=== PATIENT | female | born 1970 | race Caucasian/White ===

== ENCOUNTER 2020-04-21 12:30 | Outpatient (CLI) | payer OTHER, SELFPAY ==
--- NOTE | 2020-04-21 12:54 | MM_ITS ---
WS: [id number] SCREENING DIGITAL MAMMOGRAM WITH CAD HISTORY: SCREEN COMPARISON: None available. Bilateral CC and MLO views submitted. Computer aided detection analyzed. Breast composition: The breasts are heterogeneously dense, which may obscure small masses. Focal irre gular asymmetry measuring 8 mm in the central RIGHT breast on the CC projection only. Otherwise no ch dre. RIGHT breast: Spot compression views (CC ). True ML. Ultrasound to follow if abnormality persists. MM/[place] [id number] IMPRESSION: BI-RADS: 0-Incomplete: Need additional imaging evaluation FOLLOW UP: Need Additional Imaging
== END 2020-04-21 12:31 | disposition home or self-care (01) ==
LOC: RADSHAW 12:35
PROVIDERS: PCP Nurse Practitioner Family; Visit Provider Nurse Practitioner Family
DX: Z12.31 Encounter for screening mammogram for malignant neoplasm of breast (principal); N64.89 Other specified disorders of breast
CPT/HCPCS: 77067

== ENCOUNTER 2020-05-13 10:05 | Outpatient (CLI) | payer OTHER, SELFPAY ==
--- NOTE | 2020-05-13 10:15 | US_ITS ---
WS: [id number] RIGHT DIGITAL MAMMOGRAPHY WITH CAD CLINICAL INFORMATION: RT BREAST ASYMMETRY HISTORY: COMPARISON: April 21, 2020 TECHNIQUE: 2 views of the right breast were obtained. FINDINGS: The right breast is composed of heterogeneous fibroglandular density tissue, which can limit the dete ction of small underlying mass lesions. Focal asymmetry is again seen measuring 8 mm in the central right breast best seen on the CC view. Ul trasound is pending. ULTRASOUND BREAST RIGHT TECHNIQUE: Ultrasound right breast focused area of concern. CLINICAL INFORMATION: RT BREAST ASYMMETRY COMPARISON: None. FINDINGS: Ultrasound right breast at the 12:00 position 3 cm from the nipple is a heterogeneous mixed echogenic ity nodule measuring 6.3 x 3.2 x 3.9 mm. This lesion is indeterminant and Recommend further evaluatio n with ultrasound-guided biopsy US/US breast RT limited* [id number] IMPRESSION: BI-RADS: 4B-Suspicious: Intermediate FOLLOW UP: US Guided Biopsy Recommended
== END 2020-05-13 10:06 | disposition home or self-care (01) ==
LOC: RADSHAW 10:09
PROVIDERS: PCP Nurse Practitioner Family; Visit Provider Radiology Diagnostic Radiology
DX: N63.15 Unspecified lump in the right breast, overlapping quadrants (principal)
CPT/HCPCS: 76642; 77065

== ENCOUNTER 2020-05-27 11:45 | Outpatient (CLI) | payer MEDICAID, SELFPAY ==
--- NOTE | 2020-05-27 11:51 | US_ITS ---
WS: [id number] ULTRASOUND-GUIDED RIGHT BREAST BIOPSY CLINICAL INFORMATION: R BREAST ASYMMETRY COMPARISON: None. FINDINGS: The procedure including risks, benefits, and complications were discussed with the patient who agreed to proceed. Using sterile technique patient was prepped and draped in the usual sterile fashion. Aft er 1% lidocaine utilizing real-time ultrasound guidance 4 14-gauge cores were obtained of the right b reast lesion at the 3 o'clock position. Subsequently a titanium clip was placed in the biopsy cavity. No immediate complications. Pathology demonstrates Breast, right, 12:00 biopsy: -Benign breast tissue with usual ductal hyperplasia and apocrine metaplasia. -No malignancy identified. US/[place] [id number] IMPRESSION: 1. Uncomplicated ultrasound-guided right breast biopsy. 2. The pathology demonstrates benign breast tissue. No malignancy identified. BI-RADS: 2-Benign FOLLOW UP: 1 Year Follow-up
[2020-05-27 12:30] LABS: INR 0.91 (0.8-1.2)
== END 2020-05-27 11:46 | disposition home or self-care (01) ==
PROVIDERS: PCP Nurse Practitioner Family
DX: N64.89 Other specified disorders of breast (principal); N62 Hypertrophy of breast; N60.81 Other benign mammary dysplasias of right breast
CPT/HCPCS: 19083; 36415; 85610; 88305

== ENCOUNTER 2020-12-12 07:41 | Emergency (ER) | payer SELFPAY ==
[2020-12-12 08:00] VITALS: BP 101/68; PULSE 64; RESP 18; TEMP 36.6; O2SAT 100; BMI 22.6
--- NOTE | 2020-12-12 08:10 | XRR_ITS ---
PROCEDURE INFORMATION: Exam: XR Thoracic Spine, 3 Views Exam date and time: 12/12/2020 8:21 AM Age: 50 years old Clinical indication: Injury or trauma; Fall; Blunt trauma (contusions or hematomas) TECHNIQUE: Imaging protocol: XR of the thoracic spine, 3 views. COMPARISON: No relevant prior studies available. FINDINGS: Bones/joints: Mild degenerative changes are present with a few tiny osteophytes.. No acute fracture. Normal alignment. Soft tissues: Unremarkable. XR/XR thoracic spine 3V* [id number] IMPRESSION: No acute findings.
--- NOTE | 2020-12-12 08:10 | XRR_ITS ---
PROCEDURE INFORMATION: Exam: XR Cervical Spine, 2 or 3 Views Exam date and time: 12/12/2020 8:21 AM Age: 50 years old Clinical indication: Injury or trauma; Fall; Blunt trauma; Additional info: Fall, neck pain TECHNIQUE: Imaging protocol: XR of the cervical spine, 2 or 3 views. COMPARISON: No relevant prior studies available. FINDINGS: Bones/joints: No fracture or other acute bone or joint abnormalities are seen in the cervical spine. Chronic degenerative disease is present especially from C5 through C7 and T1-T2 with disc space narrowing sclerosis and osteophytes. There is no significant malalignment. Soft tissues: Unremarkable. XR/XR cervical spine 3V* [id number] IMPRESSION: Chronic degenerative disease. No acute abnormality.
--- NOTE | 2020-12-12 08:10 | XRR_ITS ---
PROCEDURE INFORMATION: Exam: XR Lumbosacral Spine, 2 or 3 Views Exam date and time: 12/12/2020 8:21 AM Age: 50 years old Clinical indication: Injury or trauma; Fall; Blunt trauma (contusions or hematomas); Additional info: Fall l5, s1 pain area TECHNIQUE: Imaging protocol: XR of the lumbosacral spine, 2 or 3 views. COMPARISON: CT abdomen pelvis w con* [id number] 04/26/2019 7:56 PM FINDINGS: Bones/joints: Mild degenerative disease is present with mild narrowing of the L5-S1 disc space and sclerosis in the lower lumbar facet joints.. No acute fracture. Normal alignment. Soft tissues: Unremarkable. XR/XR lumbar spine 2-3V* [id number] IMPRESSION: No acute findings.
--- NOTE | 2020-12-12 08:11 | ED_ITS ---
HPI - Trauma General: Chief Complaint: Trauma Stated Complaint: FALL, R HIP PAIN/TAILBONE PAIN Time Seen by Provider: 12/12/20 08:07 History of Present Illness: HPI narrative: Patient fell at 0 530 this morning going out to put wood in her furnace. She landed on her left side. And said she felt immediate pain on her right side lower lumbar area and in her neck. States she vomited just right after she fell because it hurts so bad she is able to ambulate now without much difficulty complaining pain going down right sciatic nerve area. Has had a history of sciatica. denies loss of conscious or hitting her head. MD complaint: fall, injury and pain Onset (ago): hour(s) Loss of Consciousness: no Location: back Severity: moderate Severity scale (1-10): 5 Context: fall Associated symptoms: Reports back pain and vomiting (X1); Denies chest pain, chills, fever(s) or headache(s) Review of Systems Const: Denies: fever(s), chills or body aches Eyes: Denies: change in vision or blurry vision ENMT: Denies: throat pain or nasal congestion Card: Denies: chest pain or dyspnea on exertion Resp: Denies: dyspnea, productive cough or non-productive cough GI: Reports: vomiting (X1) Musc: Reports: neck pain (Neck muscles are sore especially be between the upper scapula she says), back pain and extremity pain (Right static area down hip into the thigh); Denies: deformity Skin/Breast: Denies: rash Neuro: Denies: headache(s) Psych: Denies: anxiety or depression Cruz/Lymph: Denies: easy bruising Physical Exam Const: COMMON NORMALS: no acute distress, average body habitus and patient oriented x3 HENMT: COMMON NORMALS: normocephalic HEAD & SCALP: normal to inspection and normocephalic FACE & SINUS: normal facial exam Eye: COMMON NORMALS: conjunctivae normal GENERAL EYE: appearance normal, both eyes and all related structures CONJUNCTIVA: Yes conjunctivae normal Neck/C-Spine: COMMON NORMALS: full ROM and no JVD CERVICAL SPINE: No Cervical spine tenderness and Yes Paracervical muscle tenderness Chest: COMMONS NORMALS: normal inspection of the chest Resp: COMMON NORMALS: normal respiratory effort and clear to auscultation bilaterally AUSCULTATION: clear to auscultation bilaterally Cardio: COMMON NORMALS: no JVD, regular rate and regular rhythm RATE: regular rate RHYTHM: regular rhythm GI: COMMON NORMALS: Normal to inspection, nondistended, normoactive bowel sounds present : BLADDER/KIDNEY EXAM: No CVA tenderness Back/Pelvis: GENERAL BACK: No CVA tenderness THORACIC SPINE/UPPER BACK: Yes thoracic spinal tenderness T-spine tenderness location: T1 LUMBAR SPINE/LOWER BACK: Yes lumbar spinal tenderness PELVIS: Yes buttock abnormal Buttock abnormal laterality: right Right buttock abnormal details: tenderness SACRUM: tenderness Extremity: COMMON NORMALS: normal to inspection and full ROM Neuro: COMMON NORMALS: patient oriented x3 Coding Level of Care 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
[2020-12-12] MEDS: predniSONE 20 mg Tablet 60 MG PO (09:05)
[2020-12-12] MEDS: TRAMadol 50 mg Tablet PO (09:05)
[2020-12-12 09:10] VITALS: BP 102/59; PULSE 62; RESP 20; O2SAT 100
== END 2020-12-12 09:11 | disposition home or self-care (01) ==
PROVIDERS: Emergency Provider Nurse Practitioner Family; PCP Nurse Practitioner Family
DX: M54.5 Low back pain (principal); M54.2 Cervicalgia
CPT/HCPCS: 72040; 72072; 72100; 99283; J7512

== ENCOUNTER 2021-05-24 11:40 | Outpatient (CLI) | payer OTHER, SELFPAY ==
--- NOTE | 2021-05-24 11:46 | MM_ITS ---
WS: [id number] BILATERAL DIGITAL SCREENING MAMMOGRAPHY WITH CAD CLINICAL INFORMATION: SCREENING HISTORY: Screening mammogram. No current complaints. COMPARISON: April 21, 2020 TECHNIQUE: Bilateral CC and MLO views. FINDINGS: The breasts are composed of heterogeneous fibroglandular density tissue, which can limit the detectio n of small underlying mass lesions. No suspicious mass, asymmetry, calcifications, or architectural d istortion. No evidence of malignancy. Biopsy marker right breast with adjacent parenchymal scarring. MM/[place] [id number] IMPRESSION: BI-RADS: 2-Benign FOLLOW UP: 1 Year Follow-up Recommend return to annual screening mammography.
== END 2021-05-24 11:41 | disposition home or self-care (01) ==
LOC: RADSHAW 11:44
PROVIDERS: PCP Nurse Practitioner Family; Visit Provider Family Medicine
DX: Z12.31 Encounter for screening mammogram for malignant neoplasm of breast (principal)
CPT/HCPCS: 77067

== ENCOUNTER 2022-04-02 19:35 | Emergency (ER) | payer MEDICAID, SELFPAY ==
[2022-04-02 19:49] VITALS: BP 123/82; PULSE 78; RESP 16; TEMP 37; O2SAT 99; BMI 22.2
[2022-04-02 20:39] VITALS: BP 122/75; PULSE 75; RESP 16; O2SAT 100
--- NOTE | 2022-04-02 20:43 | CTR_ITS ---
PROCEDURE INFORMATION: Exam: CT Abdomen And Pelvis With Contrast Exam date and time: 04/02/2022 9:05 PM Age: 51 years old Clinical indication: Other: Gi bleeding; Prior surgery; Surgery date: 6+ months; Surgery type: Gb, hyst; Additional info: Llq pain gi bleeding TECHNIQUE: Imaging protocol: Computed tomography of the abdomen and pelvis with contrast. Radiation optimization: All CT scans at this facility use at least one of these dose optimization techniques: automated exposure control; mA and/or kV adjustment per patient size (includes targeted exams where dose is matched to clinical indication); or iterative reconstruction. Contrast material: OMNI 300; Contrast volume: 95 ml; Contrast route: INTRAVENOUS (IV); COMPARISON: CT abdomen pelvis w con* [id number] 04/26/2019 7:56 PM RADIATION DOSE METRICS: Total DLP (mGy-cm): 1042.87 FINDINGS: Liver: Normal. No mass. Gallbladder and bile ducts: Cholecystectomy. No calcified stones. No ductal dilation. Pancreas: Normal. No ductal dilation. Spleen: Normal. No splenomegaly. Adrenal glands: Normal. No mass. Kidneys and ureters: Normal. No hydronephrosis. Stomach and bowel: Unremarkable. No obstruction. No mucosal thickening. Appendix: No evidence of appendicitis. Intraperitoneal space: Unremarkable. No free air. No significant fluid collection. Vasculature: Unremarkable. No abdominal aortic aneurysm. Lymph nodes: Unremarkable. No enlarged lymph nodes. Urinary bladder: Unremarkable as visualized. Reproductive: Hysterectomy. Bones/joints: Unremarkable. No acute fracture. Soft tissues: Unremarkable. CT/CT abdomen pelvis w con* [id number] IMPRESSION: No acute findings.
[2022-04-02 20:58] LABS: Add Urine Microscopic? NO; Charge for UA Resulting for Rev
[2022-04-02 21:03] LABS: Basophils # 0.1 10^3/uL (0.0-0.1); Basophils % 0.8 %; Eosinophils # 0.1 10^3/uL (0.0-0.8); Eosinophils % 1.7 %; Hematocrit 37.9 % (37.0-47.0); Hemoglobin 12.9 g/dL (11.5-15.3); Lymphocytes # 2.5 10^3/uL (0.8-4.8); Lymphocytes % 39.7 %; Mean Corpuscular Volume 88.1 fl (81-99); Mean Platelet Volume 9.1 fL (7.4-10.4); Monocytes # 0.5 10^3/uL (0.2-0.9); Monocytes % 7.3 %; Neutrophils # 3.21 10^3/uL (1.8-7.7); Neutrophils % 50.2 %; Nucleated Red Blood Cells % 0 %; Platelet Count 366 10^3/cmm (130-400); White Blood Count 6.4 10^3/uL (4.0-10.0)
[2022-04-02] MEDS: sodium chloride 0.9% 1,000 ML 999 ML IV (21:03)
[2022-04-02] MEDS: iohexol 300 mg/mL 100 mL Btl IV (21:05)
[2022-04-02 21:07] LABS: Bilirubin Urine Neg (Negative); Blood Urine Neg (Negative); Glucose Urine UA Norm (Normal); Ketones Urine Negative (Negative); Leukocyte Esterase Urine Negative (Negative); Nitrate Urine Negative (Negative); Protein Urine Neg (Negative); Specific Gravity, Urine 1.015 (1.005-1.030); Urine Appearance Clear (CLEAR); Urine Color Yellow (Yellow); Urobilinogen Urine Norm (Negative); pH Urine 6 (5-7)
[2022-04-02 21:21] LABS: INR 0.94 (0.8-1.2)
[2022-04-02 21:23] LABS: Alanine Aminotransferase 22 U/L (0-33); Albumin Level 4.3 g/dL (3.5-5.2); Alkaline Phosphatase 61 IU/L (35-105); Anion Gap 11.8 (5-19); Aspartate Amino Transferase 13 U/L (0-32); Blood Urea Nitrogen 9 mg/dL (6-20); Calcium 9.1 mg/dL (8.5-10.5); Carbon Dioxide 26 mmol/L (22-29); Chloride 108 mmol/L (98-107); Globulin 2.4 g/dL (1.3-4.6); Glomerular Filtration Rate 76.2 mL/min (90-130); Glucose 100 mg/dL (65-115); Lipase 23 U/L (13-60); Osmolality Calculated 293 mOsm/kg (285-295); Potassium 3.8 mmol/L (3.5-5.1); Sodium 142 mmol/L (136-145); Total Bilirubin 0.4 mg/dL (0.15-1.2); Total Protein 6.7 g/dL (6.6-8.7)
[2022-04-02] MEDS: ciprofloxacin 500 mg Tablet PO (22:19)
[2022-04-02] MEDS: metroNIDAZOLE 500 MG Tablet PO (22:19)
[2022-04-02 22:53] VITALS: BP 125/86; PULSE 78; RESP 16; O2SAT 96
--- NOTE | 2022-04-03 18:52 | W.ED.GIBLEED ---
HPI - GI Bleed General: Chief complaint: GI Bleed Stated complaint: Bloody Stool Time Seen by Provider: 04/02/22 20:19 Source: patient History of Present Illness: 51-year-old female presents bloody, mucousy diarrhea for the past several hours. She has not vomited. She has mild cramping abdominal pain with it. She has not had the symptoms before. She does have a history of IBS. MD complaint: blood streaked stool Onset (ago): hour(s) Pain Consistency: constant Severity: moderate Relieving factors: none Exacerbating factors: bowel movement Context: other Associated symptoms: Reports abdominal pain and nausea; Denies chills, fever(s) or vomiting Review of Systems Const: Denies: fever(s) or chills ENMT: Reports: throat pain Card: Denies: chest pain Resp: Denies: dyspnea GI: Reports: abdominal pain, nausea and diarrhea; Denies: vomiting Physical Exam Const: COMMON NORMALS: no acute distress GENERAL APPEARANCE: cooperative; not ill appearing HENMT: COMMON NORMALS: normocephalic, atraumatic and Normal external nose present HEAD & SCALP: normocephalic and atraumatic FACE & SINUS: normal facial exam and face symmetric NOSE: Normal external nose present Eye: COMMON NORMALS: Equal, round and reactive pupils present and EOMs intact bilaterally PUPIL: Yes Equal, round and reactive pupils present Neck/C-Spine: GENERAL: Yes trachea midline Chest: CHEST: Yes Symmetrical chest wall rise Resp: COMMON NORMALS: normal respiratory effort, No use of accessory muscles and clear to auscultation bilaterally AUSCULTATION: clear to auscultation bilaterally Cardio: COMMON NORMALS: regular rate and regular rhythm RATE: regular rate RHYTHM: regular rhythm GI: COMMON NORMALS: Soft to palpation INSPECTION: Yes abdominal distension (mild) PALPATION: Yes Soft to palpation and Yes Tenderness to palpation present (GI) Extremity: COMMON NORMALS: no pedal edema Neuro: ROSAURA COMA SCALE: document GCS findings Rosaura coma scale eye opening: Spontaneous [place] coma scale verbal response: Orientated Rosaura coma scale motor response: Obey commands Rosaura coma scale total score: 15 Course Vital Signs: Vital signs: Vital Signs Temperature 98.6 F 04/02/22 19:49 Pulse Rate 78 04/02/22 22:53 Respiratory Rate 16 04/02/22 22:53 Blood Pressure 125/86 04/02/22 22:53 Pulse Oximetry 96 04/02/22 22:53 MDM - GI Bleed Medical Decision Making Patient notes improvement after being here. Hemoglobin is 12.9. Normal white count. CMP is essentially normal. Urinalysis is negative. C-reactive protein is only 3. CT is negative. Likely a mild hemorrhagic colitis, will treat accordingly. Lab Data : 04/02/22 20:50 04/02/22 20:50 Radiology Impressions Abdomen/Pelvis CT 04/02/22 20:43 IMPRESSION: No acute findings. Laboratory Results WBC 6.4 10^3/uL (4.0-10.0) 04/02/22 20:50 RBC 4.30 10^6/uL (4.1-5.3) 04/02/22 20:50 Hgb 12.9 g/dL (11.5-15.3) 04/02/22 20:50 Hct 37.9 % (37.0-47.0) 04/02/22 20:50 MCV 88.1 fl (81-99) 04/02/22 20:50 MCH 30.0 pg (28.0-34.0) 04/02/22 20:50 MCHC 34.0 g/dL (30.0-36.0) 04/02/22 20:50 RDW 12.0 % (12.1-15.1) L 04/02/22 20:50 Plt Count 366 10^3/cmm (130-400) 04/02/22 20:50 MPV 9.1 fL (7.4-10.4) 04/02/22 20:50 Neut % (Auto) 50.2 % 04/02/22 20:50 Lymph % (Auto) 39.7 % 04/02/22 20:50 [place] % (Auto) 7.3 % 04/02/22 20:50 Eos % (Auto) 1.7 % 04/02/22 20:50 Baso % (Auto) 0.8 % 04/02/22 20:50 Neut # (Auto) 3.21 10^3/uL (1.8-7.7) 04/02/22 20:50 Lymph # (Auto) 2.5 10^3/uL (0.8-4.8) 04/02/22 20:50 [place] # (Auto) 0.5 10^3/uL (0.2-0.9) 04/02/22 20:50 Eos # (Auto) 0.1 10^3/uL (0.0-0.8) 04/02/22 20:50 Baso # (Auto) 0.1 10^3/uL (0.0-0.1) 04/02/22 20:50 Nucleated RBC % (auto) 0 % 04/02/22 20:50 Nucleated RBCs # 0.0 /100WBC 04/02/22 20:50 PT 12.80 SECONDS (12.1-14.9) 04/02/22 20:58 INR 0.94 (0.8-1.2) 04/02/22 20:58 Sodium 142 mmol/L (136-145) 04/02/22 20:50 Potassium 3.8 mmol/L (3.5-5.1) 04/02/22 20:50 Chloride 108 mmol/L (98-107) H 04/02/22 20:50 Carbon Dioxide 26 mmol/L (22-29) 04/02/22 20:50 Anion Gap 11.8 (5-19) 04/02/22 20:50 BUN 9 mg/dL (6-20) 04/02/22 20:50 Creatinine 0.8 mg/dL (0.5-0.9) 04/02/22 20:50 GFR Calculation 76.2 mL/min (90-130) L 04/02/22 20:50 Glucose 100 mg/dL (65-115) 04/02/22 20:50 Calculated Osmolality 293 mOsm/kg (285-295) 04/02/22 20:50 Calcium 9.1 mg/dL (8.5-10.5) 04/02/22 20:50 Total Bilirubin 0.4 mg/dL (0.15-1.2) 04/02/22 20:50 AST 13 U/L (0-32) 04/02/22 20:50 ALT 22 U/L (0-33) 04/02/22 20:50 Alkaline Phosphatase 61 IU/L (35-105) 04/02/22 20:50 C-Reactive Protein 3.0 mg/L (0.0-4.9) 04/02/22 20:50 Total Protein 6.7 g/dL (6.6-8.7) 04/02/22 20:50 Albumin 4.3 g/dL (3.5-5.2) 04/02/22 20:50 Globulin 2.4 g/dL (1.3-4.6) 04/02/22 20:50 Lipase 23 U/L (13-60) 04/02/22 20:50 Urine Color Yellow (Yellow) 04/02/22 20:50 Urine Appearance Clear (CLEAR) 04/02/22 20:50 Urine pH 6 (5-7) 04/02/22 20:50 Ur Specific [place] 1.015 (1.005-1.030) 04/02/22 20:50 Urine Protein Neg (Negative) 04/02/22 20:50 Urine Glucose (UA) Norm (Normal) 04/02/22 20:50 Urine Ketones Negative (Negative) 04/02/22 20:50 Urine Blood Neg (Negative) 04/02/22 20:50 Urine Nitrate Negative (Negative) 04/02/22 20:50 Urine Bilirubin Neg (Negative) 04/02/22 20:50 Urine Urobilinogen Norm mg/dL (Negative) 04/02/22 20:50 Ur Leukocyte Esterase Negative (Negative) 04/02/22 20:50 Discharge Plan Discharge Patient Disposition: Home Clinical Impression: Acute hemorrhagic colitis Condition: Stable Prescriptions: New prednisone 10 mg tablet See Rx Instructions .ROUTE .COMPLEX Qty: 21 0RF Rx Instructions: 4 PO Qday x3d, 2 PO [id number], 1 PO [id number] metronidazole 500 mg tablet 500 mg PO Q8H 7 Days Qty: 21 0RF Cipro 500 mg tablet 500 mg PO Q12H Qty: 14 0RF No Action tramadol 50 mg tablet 50 mg PO TID PRN (Reason: pain) Qty: 14 0RF prednisone 20 mg tablet 20 mg PO DAILY Qty: 7 0RF Discharge Orders: Discharge ED (Routine); Ordered 04/02/22 Ordered By: Venu Orellana Referrals: Alissa Gustafson FNP [Primary Care Provider] - 1-3 days Patient Instructions: Rectal Bleeding (ED) Activity Restrictions/Additional Instructions: Medications as directed. Return for fever greater than 100 despite 2-3 doses of antibiotics, worsening abdominal pain, vomiting liquids or medications, or continued diarrhea with continued gastrointestinal bleeding for more than 48 hours despite treatment. You should see your doctor in 2 days time to have your blood count repeated, especially if bleeding continues. 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
== END 2022-04-02 22:53 | disposition home or self-care (01) ==
PROVIDERS: Emergency Provider Emergency Medicine; PCP Nurse Practitioner Family
DX: K52.89 Other specified noninfective gastroenteritis and colitis (principal)
CPT/HCPCS: 74177; 80053; 81003; 83690; 85025; 85610; 86140; 96374; 99284; J2930; J7030; Q9967

== ENCOUNTER 2022-08-03 09:55 | Outpatient (CLI) | payer OTHER, SELFPAY ==
--- NOTE | 2022-08-03 10:00 | MM_ITS ---
WS: [id number] BILATERAL SCREENING DIGITAL TOMOSYNTHESIS MAMMOGRAM WITH CAD HISTORY: SCREENING COMPARISON: 01/08/2019, 05/24/2021 Bilateral CC and MLO views with tomosynthesis and synthetic mammography submitted. Computer aided det ection analyzed. Breast composition: There are scattered areas of fibroglandular density. No suspicious masses, microc alcifications or architectural distortion. Biopsy clip upper outer quadrant of the RIGHT breast is re identified. MM/[place] [id number] IMPRESSION: BI-RADS: 2-Benign FOLLOW UP: 1 Year Follow-up
== END 2022-08-03 09:56 | disposition home or self-care (01) ==
PROVIDERS: PCP Nurse Practitioner Family; Visit Provider Nurse Practitioner Family
DX: Z12.31 Encounter for screening mammogram for malignant neoplasm of breast (principal)
CPT/HCPCS: 77063; 77067

== ENCOUNTER 2022-09-01 09:26 | Day surgery (SDC) | payer MEDICAID, OTHER, SELFPAY ==
[2022-08-31 12:14] VITALS: BMI 22.6
[2022-09-01 09:48] VITALS: BP 112/70; PULSE 71; RESP 18; TEMP 36.2; O2SAT 100
[2022-09-01] MEDS: sodium chloride 0.9% 1,000 ML 30 ML IV (09:54)
--- NOTE | 2022-09-01 10:10 | ANES.PREANE2 ---
Pre-Anesthetic Assessment Height/Weight: Height 1.68 m Weight 63.503 kg Temp Pulse Resp BP Pulse Ox O2 Del Method 97.2 F L 71 18 112/70 100 09/01/22 09:48 09/01/22 09:48 09/01/22 09:48 09/01/22 09:48 09/01/22 09:48 09/01/22 09:48 Preop Diagnosis: History of colon polyps/bloody diarrhea Operation Date: 09/01/22 10:45 Proposed Procedures p 66448 EGD, 14595 Colon,Z86.010(Not Applicable) - Liu Pimentel MD s Colonoscopy(Not Applicable) - Liu Pimentel MD Familial anesthetic complications: nausea Was Beta Yfn taken within 24 hours: N/A Was Clonidine taken within 24 hours: N/A Last intake: Intake Last Liquid Date 08/31/22 Last Liquid Time 20:00 Last Solid Date 08/31/22 Last Solid Time 08:00 Social No alcohol and No tobacco Exam alert, oriented x 3, clear to auscultation bilaterally and regular rate & rhythm Airway Submandibular: within normal limits Cervical ROM: within normal limits Mallampati: Class I Dentition: false Pulmonary Asthma (had covid in May and thats the last time using inhaler) CV/HEM None reported None reported Hepatic None reported GI Gastroesophageal Reflux Disease (occasional with certain foods) Metabolic None reported Musc/skel Fibromyalgia and Osteoarthritis/DJD Neuropsych None reported Anesthetic Plan ASA status: 2 Anesthesia: MAC Risk of > 500 ml blood loss (7ml/kg in children): No Medications/Allergies Home Medications Medication Instructions Recorded Confirmed Last Taken Type clindamycin HCl 300 mg capsule 300 mg PO QID 08/31/22 09/01/22 08/31/22 History Allergies Allergy/AdvReac Type Severity Reaction Status Date / Time Cephalosporins Allergy ALGY-Anaphy Verified 08/31/22 16:57 laxis Current Medications Generic Name Dose Route Start Last Admin Trade Name Freq PRN Reason Stop Dose Admin Sodium Chloride 1,000 mls @ 30 mls/hr 09/01/22 09:45 09/01/22 09:54 Sodium Chloride 0.9% IV 09/02/22 09:44 30 mls/hr .Q24H RENETTA Administration PFSH Anesthesia Family History Other Hypertension Social History Smoking and tobacco status: former smoker Data Anesthesia Cardiac Studies: No Data to Display
--- NOTE | 2022-09-01 10:23 | W.PM.OPSUD ---
Surgery/Procedure H&P Update DATE OF PROCEDURE: September 01, 2022 DATE H&P PERFORMED: 08/31/22 H&P UPDATE INFORMATION: I have reviewed H&P completed within last 30 days, I have examined patient prior to procedure and No changes to prior documentation PREOP DIAGNOSIS: History of colon polyps/bloody diarrhea PRIMARY INDICATION FOR PROCEDURE: The same PLANNED PROCEDURE: Operation Date: 09/01/22 10:45 Proposed Procedures p 50831 EGD, 04021 Colon,Z86.010(Not Applicable) - Liu Pimentel MD s Colonoscopy(Not Applicable) - Liu Pimentel MD
[2022-09-01 11:26] VITALS: BP 95/72; PULSE 67; RESP 18; TEMP 36.1; O2SAT 98
[2022-09-01 11:32] VITALS: BP 105/73; PULSE 69; RESP 18; O2SAT 100
--- NOTE | 2022-09-01 13:25 | ANE.PACU2 ---
Inpatient post-anesthesia follow up: Airway intact: Yes Vital signs: Temperature 97.0 F Pulse Rate 69 Respiratory Rate 18 Blood Pressure 105/73 Pulse Oximetry 100 Oxygen Delivery Me thod Room Air Oxygen Flow Rate Fraction of Inspir ed Oxygen Hydration adequate: Yes Nausea and vomiting: No Pain level: 1 Mental status: Baseline
== END 2022-09-01 11:50 | disposition home or self-care (01) ==
PROVIDERS: PCP Nurse Practitioner Family; Visit Provider Surgery
PROC: 0DJ08ZZ Inspection of Upper Intestinal Tract, Via Natural or Artificial Opening Endoscopic (ICD-10-PCS; CPT 43235; principal; 2022-09-01 10:45)
PROC: 0DJD8ZZ Inspection of Lower Intestinal Tract, Via Natural or Artificial Opening Endoscopic (ICD-10-PCS; CPT 45378; 2022-09-01 10:45)
DX: K57.30 Diverticulosis of large intestine without perforation or abscess without bleeding (principal); Z86.010 Personal history of colon polyps; K29.50 Unspecified chronic gastritis without bleeding; B96.81 Helicobacter pylori [H. pylori] as the cause of diseases classified elsewhere; J45.909 Unspecified asthma, uncomplicated; Z86.16 Personal history of COVID-19; K21.9 Gastro-esophageal reflux disease without esophagitis; M79.7 Fibromyalgia; I10 Essential (primary) hypertension; Z87.891 Personal history of nicotine dependence
CPT/HCPCS: 43239; 45378; 82274; 83630; 87493; 87506; 88305; J2704; J3490; J7030

== ENCOUNTER 2022-09-14 07:06 | Outpatient (CLI) | payer MEDICAID, SELFPAY ==
--- NOTE | 2022-09-14 07:16 | CT_ITS ---
WS: [id number] CT NECK TECHNIQUE: Contrast-enhanced CT of the neck with coronal and sagittal reformatted images. CLINICAL INFORMATION: ATYPICAL FACIAL PAIN, OTALGIA RT EAR, CHRONIC MAXILLARY SINU COMPARISON: None. DLP: 181.[address] scans at [facility] use at least one of these dose optimization techniques: automated e xposure control; mA and/or kV adjustment per patient size (includes targeted exams where dose is matc hed to clinical indication); or iterative reconstruction. FINDINGS: Opacification LEFT maxillary sinus with inspissated secretions. RIGHT maxillary sinus is well aerated . Mild mucosal thickening ethmoid air cells. Sphenoid sinuses are well aerated. Mastoid air cells are well aerated. Normal posterior nasopharynx. Normal parapharyngeal fat. Opacification LEFT ostiomeatal unit. Normal parapharyngeal fat. Parotid glands are normal. Normal submandibular glands. No evidence of supraglott ic or glottic mass. Normal subglottic airway. Thyroid gland is normal. Lung apices are well aerated. Reversal normal cervical lordosis. Mild spondylitic changes. Slight anterolisthesis C4 on C5. CT/CT neck w con* [id number] IMPRESSION: 1. Inspissated secretions LEFT maxillary sinus. Near complete opacification of the LEFT maxillary sinus with opacification LEFT ostiomeatal unit. 2. Mild mucosal thickening LEFT ethmoid air cells. Paranasal sinuses are other stephenson well aerated. Mastoid air cells are well aerated. 3. No evidence of supraglottic or glottic mass. 4. No cervical lymphadenopathy. 5. Normal salivary glands.
[2022-09-14] MEDS: iohexol 350 mg/mL 100 mL Btl IV (07:53)
== END 2022-09-14 07:07 | disposition home or self-care (01) ==
LOC: RAD 07:07
PROVIDERS: PCP Nurse Practitioner Family; Visit Provider Specialist
DX: H92.01 Otalgia, right ear (principal); G50.1 Atypical facial pain; J32.0 Chronic maxillary sinusitis
CPT/HCPCS: 70491; Q9967

== ENCOUNTER 2022-10-13 17:41 | Emergency (ER) | payer MEDICAID, SELFPAY ==
[2022-10-13] VITALS (40 sets, daily range): BP systolic 100–116; BP diastolic 67–79; PULSE 62–75; RESP 13–28; TEMP 36.6; O2SAT 81–100
--- NOTE | 2022-10-13 17:54 | ECG_ITS ---
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 Measurements Intervals [place] Rate: 67 P: 24 UT: 153 QRS: 78 QRSD: 77 T: 71 QT: 378 QTc: 400 Interpretive Statements SINUS RHYTHM WITH OCCASIONAL SUPRAVENTRICULAR PREMATURE COMPLEXES Compared to ECG 12/28/2017 10:00:18 No significant changes Electronically Signed On 10-14-2022 13:47:49 FOREST ECOLOGIST by Gabe Armstrong M.D. [id number] f
--- NOTE | 2022-10-13 18:06 | XRR_ITS ---
PROCEDURE INFORMATION: Exam: XR Chest Exam date and time: 10/13/2022 6:34 PM Age: 51 years old Clinical indication: Angina; Additional info: Cp TECHNIQUE: Imaging protocol: Radiologic exam of the chest. Views: 1 view. COMPARISON: CT chest abd pel wo/w con 01/17/2018 10:53 AM FINDINGS: Lungs: Unremarkable. No consolidation. Pleural spaces: Unremarkable. No pleural effusion. No pneumothorax. Heart/Mediastinum: Unremarkable. No cardiomegaly. Bones/joints: Unremarkable. XR/XR chest 1V portable [id number] IMPRESSION: No acute findings.
--- NOTE | 2022-10-13 18:12 | W.ED.CHESTPA ---
HPI - Chest Pain General: Chief Complaint: Chest Pain Stated Complaint: chest pain, Left arm pain Time Seen by Provider: 10/13/22 17:52 Source: patient Mode of arrival: ambulatory Limitations: no limitations History of Present Illness: 51-year-old female states she has had some intermittent left-sided chest pains along with left arm pain over the last week or so. States that pain is sporadic denies any worsening factors denies pain with exertion she had no nausea no shortness of breath no diaphoresis. She denies any pain currently denies any vomiting or diarrhea. Associated symptoms: Deny abdominal pain, dyspnea, fever(s), nausea or vomiting Review of Systems Const: Denies: fever(s), chills, body aches or change in appetite Eyes: Denies: blurry vision or eye discomfort ENMT: Denies: throat pain or dental pain Card: Reports: chest pain Resp: Denies: dyspnea GI: Denies: abdominal pain, nausea, vomiting or diarrhea : Denies: dysuria Musc: Denies: neck pain or back pain Skin/Breast: Denies: rash Neuro: Denies: headache(s) Psych: Denies: depression Cruz/Lymph: Denies: easy bruising All/Imm: Denies: urticaria PFSH ED PFSH: Medical History Bloody diarrhea Family History Other Hypertension Social History Smoking and tobacco status: former smoker Physical Exam Const: COMMON NORMALS: no acute distress, patient oriented x3 and healthy appearing HENMT: COMMON NORMALS: normocephalic and atraumatic HEAD & SCALP: normocephalic and atraumatic Eye: COMMON NORMALS: Equal, round and reactive pupils present and EOMs intact bilaterally PUPIL: Yes Equal, round and reactive pupils present Neck/C-Spine: COMMON NORMALS: full ROM and supple Chest: COMMONS NORMALS: normal inspection of the chest and normal palpation of entire chest wall Resp: COMMON NORMALS: normal respiratory effort, No retractions, No use of accessory muscles and clear to auscultation bilaterally AUSCULTATION: clear to auscultation bilaterally Cardio: COMMON NORMALS: regular rate, regular rhythm and No murmurs present (Cardio) RATE: regular rate RHYTHM: regular rhythm GI: COMMON NORMALS: Normal to inspection, nondistended, normoactive bowel sounds present, Soft to palpation, non-tender and no masses PALPATION: Yes Soft to palpation Extremity: COMMON NORMALS: normal to inspection and full ROM Neuro: COMMON NORMALS: patient oriented x3, moves all extremities and no focal motor deficits Psych: COMMON NORMALS: mental status grossly normal, Normal thought process present and cooperative THOUGHT PROCESS: Normal thought process present Skin: COMMON NORMALS: no rashes or lesions noted and no wounds GENERAL SKIN EXAM: no rashes or lesions noted Course Vital Signs: Vital signs: Vital Signs Temperature 97.8 F 10/13/22 17:45 Pulse Rate 73 10/13/22 19:50 Respiratory Rate 16 10/13/22 19:50 Blood Pressure 108/73 10/13/22 19:50 Pulse Oximetry 99 10/13/22 19:50 Oxygen Delivery Me thod 10/13/22 17:45 MDM - Chest Pain Medical Decision Making Patient presents for chest pain atypical in nature going on for weeks her initial repeat troponin here negative no signs of acute coronary syndrome or pulmonary embolism she is stable for discharge she is to follow-up with PCP and return if worsening. Lab Data 10/13/22 18:02 10/13/22 18:02 Radiology Impressions Chest X-Ray 10/13/22 18:06 IMPRESSION: No acute findings. Laboratory Results WBC 5.8 10^3/uL (4.0-10.0) 10/13/22 18:02 RBC 4.85 10^6/uL (4.1-5.3) 10/13/22 18:02 Hgb 14.5 g/dL (11.5-15.3) 10/13/22 18:02 Hct 43.3 % (37.0-47.0) 10/13/22 18:02 MCV 89.3 fl (81-99) 10/13/22 18:02 MCH 29.9 pg (28.0-34.0) 10/13/22 18:02 MCHC 33.5 g/dL (30.0-36.0) 10/13/22 18:02 RDW 12.0 % (12.1-15.1) L 10/13/22 18:02 Plt Count 375 10^3/cmm (130-400) 10/13/22 18:02 MPV 9.2 fL (7.4-10.4) 10/13/22 18:02 Neut % (Auto) 49.1 % 10/13/22 18:02 Lymph % (Auto) 38.4 % 10/13/22 18:02 [place] % (Auto) 7.9 % 10/13/22 18:02 Eos % (Auto) 3.4 % 10/13/22 18:02 Baso % (Auto) 0.9 % 10/13/22 18:02 Neut # (Auto) 2.85 10^3/uL (1.8-7.7) 10/13/22 18:02 Lymph # (Auto) 2.2 10^3/uL (0.8-4.8) 10/13/22 18:02 [place] # (Auto) 0.5 10^3/uL (0.2-0.9) 10/13/22 18:02 Eos # (Auto) 0.2 10^3/uL (0.0-0.8) 10/13/22 18:02 Baso # (Auto) 0.1 10^3/uL (0.0-0.1) 10/13/22 18: Nucleated RBC % (auto) 0 % 10/13/22 18: Nucleated RBCs # 0.0 /100WBC 10/13/22 18:02 Sodium 143 mmol/L (136-145) 10/13/22 18:02 Potassium 3.8 mmol/L (3.5-5.1) 10/13/22 18: Chloride 104 mmol/L (98-107) 10/13/22 18:02 Carbon Dioxide 28 mmol/L (22-29) 10/13/22 18:02 Anion Gap 14.8 (5-19) 10/13/22 18:02 BUN 10 mg/dL (6-20) 10/13/22 18:02 Creatinine 0.7 mg/dL (0.5-0.9) 10/13/22 18:02 GFR Calculation 88.9 mL/min (90-130) L 10/13/22 18:02 Glucose 89 mg/dL (65-115) 10/13/22 18:02 Calculated Osmolality 295 mOsm/kg (285-295) 10/13/22 18:02 Calcium 9.8 mg/dL (8.5-10.5) 10/13/22 18:02 Total Bilirubin 0.2 mg/dL (0.15-1.2) 10/13/22 18:02 AST 16 U/L (0-32) 10/13/22 18:02 ALT 16 U/L (0-33) 10/13/22 18:02 Alkaline Phosphatase 76 U/L (35-105) 10/13/22 18:02 Troponin T Baseline 6 ng/L (0-10) 10/13/22 18:02 Troponin T 120 Minute 6.00 ng/L (0-10) 10/13/22 20:03 Total Protein 7.3 g/dL (6.6-8.7) 10/13/22 18:02 Albumin 4.3 g/dL (3.5-5.2) 10/13/22 18:02 Globulin 3.0 g/dL (1.3-4.6) 10/13/22 18:02 EKG Data EKG 1: I personally reviewed and interpreted this EKG as follows: EKG interpretation date: 10/13/22 EKG interpretation time: 17:54 Interpretation: nsr hr [address] or t wave abnormalities qrs 77 qtc 393 Discharge Plan Discharge Patient Disposition: Home Clinical Impression: Chest pain Condition: Stable Prescriptions: No Action clindamycin HCl 300 mg capsule 300 mg PO QID vancomycin 125 mg capsule 125 mg PO Q6H 10 Days Qty: 40 0RF Protonix 40 mg tablet,delayed release (DR/EC) 40 mg PO DAILY 30 Days Qty: 30 3RF Discharge Orders: Discharge ED (Routine); Ordered 10/13/22 Ordered By: Lidia Chavez Referrals: Alissa Gustafson FNP [Primary Care Provider] - 1-3 days Discharge Diet: Advance as tolerated Discharge Activity: Resume usual activity Patient Instructions: Chest Pain (ED) Coding Level of Care Code ED Thread Tool Grinder Set Up Operator for Chg Fwd Exam Comprehensive
[2022-10-13 18:16] LABS: Basophils # 0.1 10^3/uL (0.0-0.1); Basophils % 0.9 %; Eosinophils # 0.2 10^3/uL (0.0-0.8); Eosinophils % 3.4 %; Hematocrit 43.3 % (37.0-47.0); Hemoglobin 14.5 g/dL (11.5-15.3); Lymphocytes # 2.2 10^3/uL (0.8-4.8); Lymphocytes % 38.4 %; Mean Corpuscular HGB Conc 33.5 g/dL (30.0-36.0); Mean Corpuscular Hemoglobin 29.9 pg (28.0-34.0); Mean Corpuscular Volume 89.3 fl (81-99); Mean Platelet Volume 9.2 fL (7.4-10.4); Monocytes # 0.5 10^3/uL (0.2-0.9); Monocytes % 7.9 %; Neutrophils # 2.85 10^3/uL (1.8-7.7); Neutrophils % 49.1 %; Nucleated Red Blood Cells % 0 %; Platelet Count 375 10^3/cmm (130-400); Red Blood Count 4.85 10^6/uL (4.1-5.3); White Blood Count 5.8 10^3/uL (4.0-10.0)
[2022-10-13] MEDS: aspirin 81 mg Chew Tablet 324 MG PO (18:25)
[2022-10-13 18:48] LABS: Troponin(5th) Baseline 6 ng/L (0-10)
[2022-10-13 18:50] LABS: Alanine Aminotransferase 16 U/L (0-33); Albumin Level 4.3 g/dL (3.5-5.2); Alkaline Phosphatase 76 U/L (35-105); Anion Gap 14.8 (5-19); Aspartate Amino Transferase 16 U/L (0-32); Blood Urea Nitrogen 10 mg/dL (6-20); Calcium 9.8 mg/dL (8.5-10.5); Carbon Dioxide 28 mmol/L (22-29); Chloride 104 mmol/L (98-107); Glomerular Filtration Rate 88.9 mL/min (90-130); Glucose 89 mg/dL (65-115); Osmolality Calculated 295 mOsm/kg (285-295); Potassium 3.8 mmol/L (3.5-5.1); Sodium 143 mmol/L (136-145); Total Bilirubin 0.2 mg/dL (0.15-1.2); Total Protein 7.3 g/dL (6.6-8.7)
--- NOTE | 2022-10-13 20:06 | ECG_ITS ---
[facility] Test Date: 2022-10-13 Pat Name: Loren Trejo Department: Room: Gender: Female Planimeter Operator: : 1970 Requested By: Lidia Chavez Order Number: [id number] Jack MD: Gabe Armstrong M.D. Measurements Intervals [place] Rate: 64 P: 34 OK: 174 QRS: 81 QRSD: 83 T: 78 QT: 393 QTc: 407 Interpretive Statements SINUS RHYTHM WITH SINUS ARRHYTHMIA Compared to ECG 10/13/2022 17:54:19 No significant changes Electronically Signed On 10-14-2022 13:52:21 FIELD CANE SCALER by Gabe Armstrong M.D. [id number]
[2022-10-13 21:08] LABS: Troponin 5 2HR Delta 0 ABS# (0-10)
== END 2022-10-13 21:07 | disposition home or self-care (01) ==
PROVIDERS: Emergency Provider Emergency Medicine; PCP Nurse Practitioner Family
DX: R07.9 Chest pain, unspecified (principal); Z87.891 Personal history of nicotine dependence
CPT/HCPCS: 71045; 80053; 84484; 85025; 93005; 99285

== ENCOUNTER 2023-06-22 07:28 | Outpatient (CLI) | payer MEDICAID, SELFPAY ==
--- NOTE | 2023-06-22 07:39 | CT_ITS ---
WS: [id number] CT chest w con* [id number] HISTORY: CONTUSION OF LEFT FRONT WALL OF THORAX TECHNIQUE: Axial imaging performed through the thorax. Coronal and sagittal reformats are submitted. All CT scans at [facility] use at least one of these dose optimization techniques: automated exposure control; mA and/or kV adjustment per patient size (includes targeted exams where dose is mat ched to clinical indication); or iterative reconstruction. CONTRAST: Omnipaque 350; 100 mL IV. DLP: 186.66 mGy.cm COMPARISON: 01/17/2018 Lungs and central airway: Mild hyperinflation. No pulmonary contusion or mass. No pulmonary nodule or atelectasis. Pleura: Normal. No pleural effusion. Heart and pericardium: Normal size heart with no pericardial effusion. Mediastinum and katie: No mediastinum or hilar adenopathy. Vessels: Normal size aortic and pulmonary artery. No coronary artery calcifications. Chest wall and lower neck: Marker along the superior anterior LEFT chest wall corresponds to the palp able abnormality. Healing anterior LEFT third and fourth rib fractures are identified with abundant c allus formation. Clavicle is intact. No sternal fracture. Upper abdomen: Prior cholecystectomy. Osseous structures: Mild straightening of the normal thoracic kyphosis. Healing rib fractures anterio r LEFT third and fourth ribs. IMPRESSION: 1. No pulmonary contusion, pneumothorax or mass. 2. Abundant callus formation associated with healing LEFT anterior third and fourth rib fractures. No sternal abnormality.
[2023-06-22] MEDS: iohexol 350 mg/mL 500 mL Btl (per mL) IV (07:58)
== END 2023-06-22 07:29 | disposition home or self-care (01) ==
LOC: RAD 07:30
PROVIDERS: PCP Nurse Practitioner Family; Visit Provider Nurse Practitioner Family
DX: S20.212A Contusion of left front wall of thorax, initial encounter (principal); S22.42XA Multiple fractures of ribs, left side, initial encounter for closed fracture; X58.XXXA Exposure to other specified factors, initial encounter
CPT/HCPCS: 71260; Q9967

== ENCOUNTER 2023-08-24 15:12 | Outpatient (CLI) | payer MEDICAID, SELFPAY ==
--- NOTE | 2023-08-24 15:17 | MM_ITS ---
WS: [id number] VIEWS: MLO and CC views both breasts. 3D digital tomosynthesis is also included in this exam. Comparison made with prior exam of 01/08/2019, 04/21/2020, 05/24/2021, 08/03/2022.. Findings: There was no sign of mass, architectural distortion or suspicious calcification in either breast. Sta ble appearing nodular densities noted bilaterally. The breasts are heterogeneously dense which may ob scure small masses. Impression: MM/[place] [id number] BI-RADS: 2-Benign finding. FOLLOW-UP: 1 Year Follow-up This mammogram was also analyzed by the Computer Aided Detection System R2 Imag e Test Engineering Intern.
== END 2023-08-24 15:13 | disposition home or self-care (01) ==
LOC: RAD 15:12
PROVIDERS: PCP Nurse Practitioner Family; Visit Provider Nurse Practitioner Family
DX: Z12.31 Encounter for screening mammogram for malignant neoplasm of breast (principal)
CPT/HCPCS: 77063; 77067

== ENCOUNTER → 2024-01-04 10:49 | Outpatient (BNVA) | payer MEDICAID, SELFPAY | PROVIDERS: PCP Nurse Practitioner Family; Visit Provider Internal Medicine Rheumatology | DX: Z79.899 Other long term (current) drug therapy (principal); M19.90 Unspecified osteoarthritis, unspecified site; Z11.1 Encounter for screening for respiratory tuberculosis; M45.6 Ankylosing spondylitis lumbar region; Z11.59 Encounter for screening for other viral diseases | CPT/HCPCS: 36415; 73130; 73630; 80076; 82306; 82565; 82784; 85025; 85651; 86480; 86704; 86803; 86812; 87340 ==

== ENCOUNTER 2024-01-17 07:21 | Day surgery (SDC) | payer MEDICAID, SELFPAY ==
--- NOTE | 2024-01-17 07:37 | P.ANESASSM_ITS ---
Pre-Anesthetic Assessment Height/Weight: Height 1.68 m Operation Date: 01/17/24 08:35 Proposed Procedures p 50525 egd [id number] colon G0105 screen colon H risk Z86.010, K57.31,K29.70(Not Applicable) - Davian Moise MD s Colonoscopy(Not Applicable) - Davian Moise MD Familial anesthetic complications: NOne Was Beta Yfn taken within 24 hours: N/A Was Clonidine taken within 24 hours: N/A Last intake: > 8hrs Social No alcohol and No tobacco Exam alert, oriented x 3, clear to auscultation bilaterally and regular rate & rhythm Airway Mallampati: Class II Dentition: false Pulmonary Asthma (can be severe when triggered - uses a nebulizer w/ albuterol and ipratropium when plus steroids when occurs)) GI Gastroesophageal Reflux Disease gastritis Musc/skel Rheumatoid Arthritis Anesthetic Plan ASA status: 2 Anesthesia: MAC Risk of > 500 ml blood loss (7ml/kg in children): No Medications/Allergies Home Medications Medication Instructions Recorded Confirmed Last Taken Type cetirizine 10 mg tablet (Zyrtec) 10 mg PO DAILY PRN allergies 12/19/23 01/17/24 01/15/24 History fluticasone propionate 50 1 spray intranasal DAILY 12/19/23 01/17/24 01/15/24 History mcg/actuation nasal spray,suspension estradiol 0.1 mg/24 hr weekly 1 patch transdermal .WEEKLY 01/04/24 01/17/24 01/13/24 History transdermal patch folic acid 1 mg tablet 1 mg PO DAILY #30 tabs 01/04/24 01/17/24 01/15/24 Rx methotrexate sodium 2.5 mg tablet 2.5 mg PO .Q7days 01/15/24 01/17/24 01/15/24 History prednisone 10 mg tablet 10 mg PO DIRECTED joint pain 01/15/24 01/17/24 History Allergies Allergy/AdvReac Type Severity Reaction Status Date / Time Cephalosporins Allergy ALGY-Anaphy Verified 01/17/24 07:34 laxis [facility] Anesthesia Medical History (Updated 01/04/24 @ 13:01 by Klever Roland MD) Fibromyalgia Lyme disease Raynaud's syndrome History of colon cancer Allergies Asthma GERD (gastroesophageal reflux disease) Cat scratch fever Allergic reaction to alpha-gal H. pylori infection Immunization counseling High risk medication use Seropositive rheumatoid arthritis of multiple sites Bloody diarrhea Surgical History (Updated 01/04/24 @ 13:01 by Klever Roland MD) History of laparoscopic cholecystectomy History of colonoscopy with polypectomy History of hysterectomy History of delivery x2 Hx of lymph node biopsy right groin Family History (Updated 01/04/24 @ 09:32 by Анна Anguiano LPN) Other Chronic kidney disease (CKD) Heart disease Hypertension Lupus (systemic lupus erythematosus) Rheumatoid arthritis Stroke Denies family history of Diabetes Osteoporosis Cancer Social History (Updated 01/04/24 @ 09:32 by Анна Anguiano LPN) Smoking and tobacco/nicotine status: former use of tobacco/nicotine Alcohol intake: never Data Anesthesia Cardiac Studies: No Data to Display
[2024-01-17] MEDS: sodium chloride 0.9% 1,000 ML 30 ML IV (07:41)
[2024-01-17 07:44] VITALS: BP 106/64; PULSE 75; RESP 16; TEMP 36; O2SAT 100; BMI 22.8
--- NOTE | 2024-01-17 08:02 | W.PM.OPSUD ---
Surgery/Procedure H&P Update DATE OF PROCEDURE: January 17, 2024 DATE H&P PERFORMED: 12/19/23 H&P UPDATE INFORMATION: I have reviewed H&P completed within last 30 days, I have examined patient prior to procedure, No changes to prior documentation and H&P is in [facility] EMR on date indicated PLANNED PROCEDURE: Operation Date: 01/17/24 08:35 Proposed Procedures p 73323 egd 55811 colon G0105 screen colon H risk Z86.010, K57.31,K29.70(Not Applicable) - Davian Moise MD s Colonoscopy(Not Applicable) - Davian Moise MD
[2024-01-17 09:24] VITALS: BP 99/65; PULSE 61; RESP 12; TEMP 36.1; O2SAT 100
[2024-01-17 09:32] VITALS: BP 115/82; PULSE 56; RESP 16; O2SAT 100
[2024-01-17 09:40] VITALS: BP 119/95; PULSE 59; RESP 18; O2SAT 100
[2024-01-17 09:50] VITALS: BP 119/89; PULSE 66; RESP 18; O2SAT 100
--- NOTE | 2024-01-17 10:00 | ANE.PACU2 ---
Inpatient post-anesthesia follow up: Airway intact: Yes Vital signs: Temperature 97.0 F Pulse Rate 66 Respiratory Rate 18 Blood Pressure 119/89 Pulse Oximetry 100 Oxygen Delivery Me thod Room Air Oxygen Flow Rate Fraction of Inspir ed Oxygen Hydration adequate: Yes Nausea and vomiting: No Pain level: 1 Mental status: Baseline
== END 2024-01-17 10:00 | disposition home or self-care (01) ==
PROVIDERS: PCP Nurse Practitioner Family; Visit Provider Surgery
PROC: 0DJ08ZZ Inspection of Upper Intestinal Tract, Via Natural or Artificial Opening Endoscopic (ICD-10-PCS; CPT 43235; principal; 2024-01-17 08:35)
PROC: 0DJD8ZZ Inspection of Lower Intestinal Tract, Via Natural or Artificial Opening Endoscopic (ICD-10-PCS; CPT 45378; 2024-01-17 08:35)
DX: K57.31 Diverticulosis of large intestine without perforation or abscess with bleeding (principal); K29.70 Gastritis, unspecified, without bleeding; Z86.010 Personal history of colon polyps; D12.0 Benign neoplasm of cecum; D12.8 Benign neoplasm of rectum; J45.909 Unspecified asthma, uncomplicated; K21.9 Gastro-esophageal reflux disease without esophagitis; M79.7 Fibromyalgia; Z79.899 Other long term (current) drug therapy; M05.9 Rheumatoid arthritis with rheumatoid factor, unspecified; Z87.891 Personal history of nicotine dependence; K44.9 Diaphragmatic hernia without obstruction or gangrene
CPT/HCPCS: 43239; 45380; 88305; J2704; J7030

== ENCOUNTER 2024-07-30 12:45 | Outpatient (CLI) | payer MEDICAID, SELFPAY ==
[2024-07-30 13:06] VITALS: PULSE 71; RESP 18; O2SAT 98
[2024-07-30 13:10] VITALS: PULSE 72
[2024-07-30] MEDS: albuterol 2.5 mg/3 mL Neb INHALATION (13:10)
== END 2024-07-30 12:46 | disposition home or self-care (01) ==
LOC: RT 12:45
PROVIDERS: PCP Nurse Practitioner Family; Visit Provider Nurse Practitioner Family
DX: J45.20 Mild intermittent asthma, uncomplicated (principal); J42 Unspecified chronic bronchitis; R09.1 Pleurisy; R94.2 Abnormal results of pulmonary function studies
CPT/HCPCS: 94060; 94726; 94729; J7613

== ENCOUNTER → 2024-08-01 11:17 | Outpatient (BNVA) | payer MEDICAID, SELFPAY | PROVIDERS: PCP Nurse Practitioner Family; Referring Provider Nurse Practitioner Family; Visit Provider Psychiatry & Neurology Neurology | DX: G43.909 Migraine, unspecified, not intractable, without status migrainosus (principal); S09.90XA Unspecified injury of head, initial encounter; X58.XXXA Exposure to other specified factors, initial encounter | CPT/HCPCS: 36415; 82607; 82746; 83090; 83921; 84439; 84443; 84481 ==

== ENCOUNTER 2024-08-20 16:36 | Outpatient (CLI) | payer MEDICAID, SELFPAY ==
--- NOTE | 2024-08-20 16:45 | MR_ITS ---
WS: [id number] MRI BRAIN WITH AND WITHOUT CONTRAST HISTORY: G43.909 - Migraine, unspecified, not intractable, without... COMPARISON: None available. TECHNIQUE: Multiplanar imaging performed through the brain with MultiHance 13 ml's IV. No acute infarcts are seen. Stevenson-white matter differentiation is well preserved. No susceptibility artifacts or prior lacunar infarcts. Ventricles and extra-axial spaces are normal. Clivus and pituitary gland are normal. Visualized posterior fossa and brainstem are also normal. Postcontrast images are negative for masses or vascular malformations. Dural venous sinuses are normal. Paranasal sinuses: Small air-fluid level LEFT maxillary sinus. Mucoperiosteal thickening in the sphen oid sinus. Mastoid air cells: Normal. Calvarium and scalp: Normal. MR/MR head wo/w con [id number] IMPRESSION: 1. No acute infarct. No hemorrhage or edema. 2. No significant atrophy. 3. LEFT maxillary and sphenoid sinus disease.
[2024-08-20] MEDS: gadobenate dimeglumine 20 mL vial IV (16:55)
== END 2024-08-20 16:37 | disposition home or self-care (01) ==
LOC: RAD 16:37
PROVIDERS: PCP Nurse Practitioner Family; Visit Provider Psychiatry & Neurology Neurology
DX: G43.909 Migraine, unspecified, not intractable, without status migrainosus (principal); S09.90XA Unspecified injury of head, initial encounter; J32.3 Chronic sphenoidal sinusitis; J32.0 Chronic maxillary sinusitis; X58.XXXA Exposure to other specified factors, initial encounter
CPT/HCPCS: 70553

== ENCOUNTER 2024-10-03 11:05 | Outpatient (CLI) | payer MEDICAID, SELFPAY ==
[2024-10-03 11:47] LABS: Basophils % 0.8 %; Eosinophils # 0.2 10^3/uL (0.0-0.8); Eosinophils % 3.8 %; Hematocrit 41.6 % (36-47); Lymphocytes # 2.2 10^3/uL (0.8-4.8); Lymphocytes % 43.2 %; Mean Corpuscular HGB Conc 33.7 g/dL (30-55); Mean Corpuscular Hemoglobin 29.9 pg (27-33); Mean Corpuscular Volume 88.9 fl (85-98); Mean Platelet Volume 8.9 fL (7.4-10.4); Monocytes # 0.4 10^3/uL (0.2-0.9); Monocytes % 8.2 %; Neutrophils # 2.18 10^3/uL (1.8-7.7); Neutrophils % 43.8 %; Nucleated Red Blood Cells % 0 %; Platelet Count 317 10^3/cmm (157-399); Red Blood Count 4.68 10^6/uL (3.85-5.65); Red Cell Distribution Width 11.9 % (12.1-15.1); White Blood Count 4.98 10^3/uL (3.29-11.43)
[2024-10-03 11:54] LABS: Erythrocyte Sedimentation Rate < 1 mm/hr (0-15)
[2024-10-03 12:07] LABS: Alanine Aminotransferase 13 U/L (0-33); Albumin Level 4.5 g/dL (3.5-5.2); Alkaline Phosphatase 68 U/L (35-105); Aspartate Amino Transferase 12 U/L (0-32); Globulin 2.5 g/dL (1.3-4.6); Glomerular Filtration Rate 105.4 mL/min (90-130); Total Bilirubin 0.3 mg/dL (0.15-1.2)
== END 2024-10-03 11:06 | disposition home or self-care (01) ==
LOC: LAB 11:06
PROVIDERS: PCP Nurse Practitioner Family; Visit Provider Internal Medicine Rheumatology
DX: M05.79 Rheumatoid arthritis with rheumatoid factor of multiple sites without organ or systems involvement (principal); Z79.899 Other long term (current) drug therapy
CPT/HCPCS: 36415; 80076; 82565; 85025; 85651; 86140

== ENCOUNTER 2024-10-15 15:18 | Outpatient (CLI) | payer MEDICAID, SELFPAY ==
--- NOTE | 2024-10-15 | MM_ITS ---
WS: [id number] Bilateral diagnostic 3D tomosynthesis digital mammogram, 10/15/2024 Comparison: 08/24/2023, 08/03/2022, 05/24/2021, 05/13/2020, 04/21/2020, 01/08/2019, 11/27/2017, 11/17/2017, 10/26/2016, 04/22/2016 hips 09/10/2015, 08/18/2014, 10/17/2012. Clinical Data: MASTODYNIA Comparison: None. Findings: No spiculated masses nor clustered calcifications are seen. The breast parenchymal pattern shows fibr oglandular tissue. There is a biopsy clip in the upper outer quadrant of the right breast. MM/MM diag BI tomosynthesis [id number] Impression: 1. Negative bilateral mammograms unchanged. 2. Recommend yearly screening mammograms. BIRADS: 1 - Negative. FOLLOW UP: 1 Year Follow-up Density: Fibroglandular tissue, 2, The CAD billing checker was used
== END 2024-10-15 15:19 | disposition home or self-care (01) ==
PROVIDERS: PCP Nurse Practitioner Family; Visit Provider Nurse Practitioner Family
DX: R92.333 Mammographic heterogeneous density, bilateral breasts (principal); N64.4 Mastodynia
CPT/HCPCS: 77062; G0279

== ENCOUNTER → 2025-01-27 10:30 | Outpatient (BNVA) | payer MEDICAID, SELFPAY | PROVIDERS: PCP Nurse Practitioner Family; Visit Provider Internal Medicine Rheumatology | DX: Z79.899 Other long term (current) drug therapy (principal) | CPT/HCPCS: 36415; 80076; 82306; 82310; 82565; 85025; 85651; 86140 ==

== ENCOUNTER 2025-02-10 14:56 | Outpatient (CLI) | payer MEDICAID, SELFPAY ==
--- NOTE | 2025-02-10 15:30 | XR_ITS ---
WS: [id number] SCREENING DEXA SCAN Companion Canine CLINICAL INFORMATION: M05.79 - Rheumatoid arthritis with rheumatoid factor of m... COMPARISON: None. FINDINGS: The L1-L4 bone mineral density measures 1.000 g/cm2. This corresponds to a T score score of -1.5 and Z score of -1.0. Left femoral neck bone mineral density measures 0.833 g/cm2. This corresponds to a T score of -1.4 and Z score of -0.9. Right femoral neck bone mineral density measures 0.823 g/cm2. This corresponds to a T score -1.5of and Z score of -1.0. Mean femoral neck bone mineral density measures 0.828 g/cm2. This corresponds to a T score of -1.4 and Z score of -0.9. XR/XR DEXA axial skeleton* [id number] IMPRESSION: Osteopenia lumbar spine and femoral necks. Patient's FRAX calculated 10 year probability for major osteoporotic fracture i s 14.3% and osteoporotic hip fracture is 2.0%.
== END 2025-02-10 14:57 | disposition home or self-care (01) ==
PROVIDERS: PCP Nurse Practitioner Family; Visit Provider Internal Medicine Rheumatology
DX: M05.79 Rheumatoid arthritis with rheumatoid factor of multiple sites without organ or systems involvement (principal); Z79.899 Other long term (current) drug therapy; M85.89 Other specified disorders of bone density and structure, multiple sites
CPT/HCPCS: 77080

== ENCOUNTER → 2025-05-12 14:06 | Outpatient (BNVA) | payer MEDICAID, SELFPAY | PROVIDERS: PCP Nurse Practitioner Family; Visit Provider Internal Medicine Rheumatology | DX: Z79.899 Other long term (current) drug therapy (principal) | CPT/HCPCS: 36415; 80076; 82040; 82565; 85025; 85651; 86140; 86480 ==

== ENCOUNTER → 2025-10-01 15:23 | Outpatient (BNVA) | payer MEDICAID, SELFPAY | PROVIDERS: PCP Nurse Practitioner Family; Visit Provider Internal Medicine Rheumatology | DX: M05.79 Rheumatoid arthritis with rheumatoid factor of multiple sites without organ or systems involvement (principal); Z79.899 Other long term (current) drug therapy | CPT/HCPCS: 36415; 80076; 82565; 85025; 85651; 86140 ==